=== PATIENT | male | born 1970 | race Two or more races ===

== ENCOUNTER 2021-03-04 21:52 | Emergency (ER) | payer OTHER ==
[~2021-03-04] VITALS: Ht 172.7 cm; Wt 120.2 kg
[2021-03-05] MEDS ORDERED: HYDROcodone-ACET 10/325MG TAB PO ONE (01:15)
[2021-03-05] MEDS ORDERED: ALBUAER3 IN (03:28)
[2021-03-05] MEDS ORDERED: GUAI600T23 PO (03:28)
[2021-03-05] MEDS ORDERED: PRED20TA2 PO (03:28)
[2021-03-05] MEDS ORDERED: ZINC100T5 PO (04:23)
[2021-03-05] MEDS ORDERED: AZITTAB PO (04:23)
[2021-03-05 06:01] VITALS: BP 150/80
== END 2021-03-05 06:12 | disposition home or self-care (01) ==
LOC: ER 21:58
DX: J06.9 Acute upper respiratory infection, unspecified (principal); E66.9 Obesity, unspecified; E78.5 Hyperlipidemia, unspecified; I10 Essential (primary) hypertension; Z68.41 Body mass index [BMI] 40.0-44.9, adult; Z20.822 Contact with and (suspected) exposure to COVID-19
CPT/HCPCS: 36415; 71046; 87426

== ENCOUNTER 2024-03-06 23:34 | Emergency (ER) | payer MEDICAID, OTHER ==
[~2024-03-06] VITALS: Ht 190.5 cm; Wt 109.0 kg
[~2024-03-06 23:34] MED LIST: ALBUAER3 IN; AZITTAB PO; GUAI600T78 PO; PRED20TA2 PO; ZINC100T5 PO
[2024-03-06] MEDS ORDERED: EPINEPHrine HCL 1 MG/10 ML SYRG IV ONE (23:35)
[2024-03-06 23:36] VITALS: PULSE 26
[2024-03-06] MEDS ORDERED: ETOMIDATE (2MG/ML) 20ML VIAL IV ONE (23:38)
[2024-03-06] MEDS ORDERED: NOREPINEPHRINE 8 MG/250ML KIT 250 ML IV ONE (23:38)
[2024-03-06] MEDS ORDERED: ROCURONIUM 10MG/ML 10ML VIAL IV ONE (23:39)
--- NOTE | 2024-03-06 23:44 | ED.PDOC ---
Altered Mental Status HPI Comments 53-year-old male came to emergency room via EMS for altered level of consciousness. Per EMS, patient was picked up at home, fell in the bathroom and was assisted up by family members. Was noted to be short of breath so paramedics were called. Patient was placed on CPAP and initial oxygen saturation cant be obtained. While EN route to the ER, patient became altered, unresponsive to verbal stimuli, with worsening short of breath/ apnea, bagging was done as patient came to the ER. Blood sugar was 87. Patient has history of hypertension and liver cirrhosis Chief Complaint: ALOC Time Seen by MD: 23:43 Primary Care Provider: DR. TALLEY Reviewed Notes: Retail Specialist Notes Allergies: Coded Allergies: NO KNOWN ALLERGIES (Unverified , 01/02/14) Home Meds Active Scripts Azithromycin (Zithromax Z-Ned) 250 Mg Tab, 250 MG PO UD for 5 Days, #1 TAB 0 Refills Prov:GAVIOTA MARVIN 03/05/21 Zinc Gluconate (ZINC) 100 Mg Tab, 100 MG PO QDAC for 30 Days, #30 TAB 0 Refills Prov:GAVIOTA MARVIN 03/05/21 Albuterol Sulfate (VENTOLIN MDI) 90 Mcg Ih, 90 MCG IN QID, #1 INH 0 Refills Prov:GAVIOTA MARVIN 03/05/21 Prednisone (Prednisone) 20 Mg Tab, 20 MG PO BID for 5 Days, #10 MG 0 Refills Prov:GAVIOTA MARVIN 03/05/21 Guaifenesin (Mucinex) 600 Mg Tab, 1 TAB PO BID, #14 TAB 0 Refills Prov:GAVIOTA MARVIN 03/05/21 Information Source: Emergency Med Personnel Mode of Arrival: EMS Severity: Unable to Care for Self, Unresponsive Timing: Minutes Duration: Since onset Prehospital treatment: Accucheck, Oxygen Quality: Decreased Alertness, Change in Behavior, Confusion Recent: Trauma History of: None Associated Signs and Symptoms: None Past Medical History PAST MEDICAL HISTORY: High Lipids, HTN, Liver Past Medical History (Other): Liver cirrhosis Surgical History: Unobtainable Family History Family History: Unobtainable Social History Smoker: Unobtainable Alcohol: Unobtainable Drugs: Unobtainable Lives In: Home Unable to Obtain due to: Medical Urgency Physical Exam General Appearance: Severe Distress HEENT: Normal ENT Inspection, Pharynx Normal, TMs Normal Neck: Full Range of Motion, Non-Tender, Normal, Normal Inspection Respiratory: Chest Non-Tender, Lungs Clear, No Accessory Muscle Use, No Res piratory Distress, Normal Breath Sounds Cardiovascular: No Edema, No JVD, No Murmur, No Gallop, Normal Peripheral Pulses, Regular Rate/Rhythm Breast Exam: Deferred Gastrointestinal: No Organomegaly, Non Tender, No Pulsatile Mass, Normal Bowel Sounds, Soft Genitalia: Deferred Pelvic: Deferred Rectal: Deferred Extremities: No calf tenderness, Normal capillary refill, Normal inspection, Normal range of motion, Non-tender, No pedal edema Musculoskeletal : Apperance: Normal Neurologic: Alert, form setter metal road forms II-XII nml as Tested, No Motor Deficits, Normal Affect, Normal Mood, No Sensory Deficits Cerebellar Function: Normal Reflexes: Normal Skin: Dry, Normal Color, Warm Lymphatic: No Adenopathy Was a procedure done? Was a procedure done?: No Differential Diagnosis (ALOC) Differential Diagnosis: Hypoglycemia, Encephalopathy, Sepsis, Hypoxemia, Seizure, Closed Head Injury, CVA, Heart Failure, Renal Failure X-Ray, Labs, Meds, VS Vital Signs Date Time Temp Pulse Resp B/P (MAP) Pulse Ox O2 Delivery O2 Flow Rate FiO2 03/06/24 23:36 95.2 26 Time of 1ST Reevaluation: 23:38 Reevaluation 1ST: Unchanged Patient Education/Counseling: Other (Unresponsive to verbal stimuli), Pt Unresponsive Family Education/Counseling: No Family Present Departure 1 Departure Time of Disposition: 00:16 (Patient presented being bagged by EMS in respiratory failure with hypotension. Patient was emergently moved to room and patient's soon lost a pulse. ACLS per protocol. Ultimately patient could not be resuscitated and time of was called) Impression: Primary Impression: Acute respiratory failure Qualified Codes: J96.01 - Acute respiratory failure with hypoxia Additional Impression: Cardiac arrest Disposition: 20 Condition: Other () Critical Care Note Critical Care Time?: No Stability Stability form required: No Heart Score Heart Score: Heart Score Response (Comments) Value History N/A 0 EKG N/A 0 Age N/A 0 Risk Factors N/A 0 Troponin N/A 0 Total 0 I personally scribed for AYAAN ALCAZAR MD ([email or web address]) on 03/06/24 at 23:44. Electronically submitted by Contreras Diana ([facility]). I personally scribed for AYAAN ALCAZAR MD ([facility]) on 03/06/24 at 23:51. Electronically submitted by Contreras Diana ([facility]). I personally scribed for AYAAN ALCAZAR MD ([facility]) on 03/06/24 at 23:54. Electronically submitted by Contreras Diana ([facility]). AYAAN ALCAZAR MD Mar 06, 2024 23:44
[2024-03-07] MEDS ORDERED: NOREPINEPHRINE 8 MG/250ML KIT 250 ML IV SCH (00:45)
[2024-03-07] MEDS ORDERED: ROCURONIUM 10MG/ML 10ML VIAL IV ONE (00:45)
[2024-03-07] MEDS ORDERED: ETOMIDATE (2MG/ML) 20ML VIAL IV ONE (00:45)
--- NOTE | 2024-03-07 01:31 | RESUS ---
GUSTAVO ROBERSON ASSESSSMENT History of Events History of Events: Patient came in via EMS being bagged and hypotensive. Pt had run of VTACH and then became bradycardiac. Per ER MD, pt was given 1 Epi prior to going pulseless. GUSTAVO ROBERSON called. Initial Information Date: Mar 06, 2024 Time: 23:42 Location of Arrest: ER Arrest Witnessed: Yes CPR started initial time: 23:42 CPR started by whom: Hospital Staff Last seen well: 2229 Pre-Hospital Care: Pre-Code Care (inpatient) Type of arrest: Cardiac, Respiratory, Adult, Witnessed Spontaneous Respirations: Yes Pulse Present: No Monitoring: ECG, Pulse Oximetry Crash Cart Opened and Supplies: Yes Airway Ventilation Breathing at Onset: Agonal Oxygen Delivery Method: Ambu-Bag Time of first Assisted Ventila: 23:42 Artificial Ventilation: Bag/Mask Intubated orally: No Intubated Nasaly: No Circulation Circulation #1: Time: 23:42 Pulse Rate (adult): 0 Blood Pressure Systolic: 0 Blood Pressure Diastolic: 0 Temperature (Fahrenheit): 95.2 (F; rectal) Circulation Comment: Asystole Circulation #2: Time: 23:44 Pulse Rate (adult): 0 Blood Pressure Systolic: 0 Blood Pressure Diastolic: 0 Circulation Comment: Asystole Circulation #3: Time: 23:47 Pulse Rate (adult): 0 Blood Pressure Systolic: 0 Blood Pressure Diastolic: 0 Circulation Comment: PEA Circulation #4: Time: 23:50 Pulse Rate (adult): 0 Blood Pressure Systolic: 0 Blood Pressure Diastolic: 0 Procedure - IV Procedure - IV : IV Side: Right IV Location: External Jugular IV Catheter Type: Saline Lock IV Placed: In Hospital IV Placed by Mihai Osorio RN IV Gauge: 18 IV Line Care: Saline Flush Comment IV placed prior to pt coding Medications & Response Medications and Responses #1: Medication Time: 23:43 ADULT Medications Given ADULT: Epinephrine 1 mg, Calcium Chloride 10 mL Route of Administration: IV Heart Rate: 0 EKG Rhythm: Asystole Blood Pressure Systolic: 0 Blood Pressure Diastolic: 0 Respiratory Rate: 0 EKG Rhythm: Asystole Medications and Responses #2: Medication Time: 23:43 ADULT Medications Given ADULT: Calcium Chloride 10 mL Route of Administration: IV Heart Rate: 0 EKG Rhythm: Asystole Blood Pressure Systolic: 0 Blood Pressure Diastolic: 0 Respiratory Rate: 0 EKG Rhythm: Asystole Medications and Responses #3: Medication Time: 23:44 ADULT Medications Given ADULT: Sodium Bacarbinate 50 meq Route of Administration: IV Heart Rate: 0 EKG Rhythm: PEA Blood Pressure Systolic: 0 Blood Pressure Diastolic: 0 Respiratory Rate: 0 EKG Rhythm: PEA Medications and Responses #4: Medication Time: 23:49 ADULT Medications Given ADULT: Epinephrine 1 mg Route of Administration: IV Heart Rate: 0 EKG Rhythm: Asystole Blood Pressure Systolic: 0 Blood Pressure Diastolic: 0 Respiratory Rate: 0 EKG Rhythm: Asystole Nurses Notes Yousif Coma Scale Eye Opening: None (1) Polo Coma Scale Verbal: None (1) Polo Coma Scale Motor: None (1) Glascow Total: 3 Pupil Reaction: Non Reactive Bedside Blood Glucose: 63 Time Code Ended Time Code Ended: 23:51 Post Arrest Status: Outcome of code: Unsuccessful Patient pronounced by: Dr Farley Time patient pronounced: 23:51 Family notified: Yes Attending called: Yes Code Team Present: Dr Farley - ELENA MARTINO; Mihai Osorio RN - ER Charge; Clarita Higgins RN - Ecologist; Abigail Marcelino RN; Renata Olivia, RT; Sabina Muller, ERT; Alvaro So, ERT; Felipe Gonzales, ERT Clarita Drake Mar 07, 2024 01:31
== END 2024-03-07 01:14 ==
LOC: ER 23:34 → EDBD 23:34 → ER 03-07 01:14
DX: I46.9 Cardiac arrest, cause unspecified (principal); J96.00 Acute respiratory failure, unspecified whether with hypoxia or hypercapnia; I10 Essential (primary) hypertension; E78.5 Hyperlipidemia, unspecified; Z79.52 Long term (current) use of systemic steroids; Z79.899 Other long term (current) drug therapy
CPT/HCPCS: 92950; 99285; J0171; J3475